=== PATIENT | female | born 1935 | race African-American/Black ===

== ENCOUNTER 2023-10-18 12:59 | Emergency (ER) | payer MEDICARE, BC ==
[~2023-10-18] VITALS: Ht 165.1 cm; Wt 72.0 kg
[2023-10-18] MEDS: METHYLPREDNISOLONE SOD SUCC 125MG/2ML (ACT-O-VIAL) IV STA (13:41)
[2023-10-18 14:28] LABS: BASOPHILS % 0.7 % (0.0-2.0); EOSINOPHILS % 9.3 % (0.0-5.0); HEMATOCRIT. 40.2 % (36.0-48.0); HEMOGLOBIN. 13.4 g/dL (12.0-16.0); LYMPHOCYTES % 18.6 % (20.0-50.0); MEAN CORPUSCULAR HEMOGLOBIN 32.8 pg (28.0-32.0); MEAN CORPUSCULAR HGB CONC 33.4 g/dL (31.0-37.0); MEAN CORPUSCULAR VOLUME 98.1 fL (81.0-99.0); MEAN PLATELET VOLUME 8.5 fl (7.4-10.4); MONOCYTES % 7.3 % (2.0-8.0); NEUTROPHILS % 64.1 % (40.0-76.0); PLATELET 181 x1000/uL (130-400); RED CELL DISTRIBUTION WIDTH 13.8 % (11.6-14.6); WHITE BLOOD COUNT 5.9 x1000/uL (4.5-11.0)
[2023-10-18 14:33] VITALS: PULSE 92; RESP 14; O2SAT 98
[2023-10-18] MEDS: ALBUTEROL (0.083%) 2.5MG/3ML NEB HHN SCH (14:33)
[2023-10-18] MEDS: IPRATROPIUM BROMIDE (0.02%) 0.5MG/2.5ML NEB HHN STA (14:33)
[2023-10-18 14:46] LABS: PARTIAL THROMBOPLASTIN TIME 22.7 sec (23.4-31.0); PROTHROMBIN TIME 11.4 sec (9.6-11.0)
[2023-10-18 14:54] VITALS: BP 160/75; TEMP 98.4
[2023-10-18 14:58] LABS: ALANINE AMINOTRANSFERASE 14 IU/L (10-49); ALBUMIN 4.2 g/dL (3.2-4.8); ASPARTATE AMINOTRANSFERASE 19 IU/L (<34); BILIRUBIN TOTAL 0.7 mg/dL (0.1-1.0); CALCIUM 9.7 mg/dL (8.7-10.4); CARBON DIOXIDE 26 mEq/L (21-32); CHLORIDE 109 mEq/L (98-107); GLUCOSE 102 mg/dL (70-105); POTASSIUM 4.8 mEq/L (3.5-5.1); PROTEIN TOTAL 6.8 g/dL (6.0-8.3); SODIUM 140 mEq/L (136-145); TROPONIN I HIGH SENSITIVITY 10 ng/L (3.0-34); UREA NITROGEN BLOOD 8 mg/dL (9-23)
[2023-10-18 15:03] VITALS: PULSE 95; RESP 18; O2SAT 99
[2023-10-18 15:36] VITALS: PULSE 100; RESP 14; O2SAT 100
[2023-10-18] MEDS ORDERED: ALBU6.7H15 INH (16:17)
[2023-10-18] MEDS ORDERED: P50 MT (16:17)
== END 2023-10-18 16:46 | disposition home or self-care (01) ==
LOC: ER 13:25
DX: J44.1 Chronic obstructive pulmonary disease with (acute) exacerbation (principal); I10 Essential (primary) hypertension; Z90.710 Acquired absence of both cervix and uterus
CPT/HCPCS: 99285; 96374; 71045; 80053; 83880; 85025; 85610; 85730; 84484; 36415; 94640; 93005; J2930